=== PATIENT | female | born 1985 | race Caucasian/White ===

== ENCOUNTER 2018-12-20 15:24 | Emergency (ER) | payer MEDICAID ==
[~2018-12-20] VITALS: Ht 154.9 cm; Wt 73.0 kg
[2018-12-20] MEDS ORDERED: SODIUM CHLORIDE 0.9% 1,000 ML IV ONE (23:02)
[2018-12-20 23:30] LABS: BASOPHILS % 0.9 % (0.0-2.0); EOSINOPHILS % 4.5 % (0.0-5.0); HEMATOCRIT. 38.5 % (36.0-48.0); LYMPHOCYTES % 27.5 % (20.0-50.0); MEAN CORPUSCULAR VOLUME 88.7 fL (81.0-99.0); MEAN PLATELET VOLUME 7.8 fl (7.4-10.4); NEUTROPHILS % 59.1 % (40.0-76.0); PLATELET 272 x1000/uL (130-400); RED BLOOD CELL COUNT 4.34 mill/uL (4.2-5.4); RED CELL DISTRIBUTION WIDTH 13.8 % (11.6-14.6)
[2018-12-20 23:31] LABS: CHLORIDE 107 mEq/L (98-107)
[2018-12-21 01:18] VITALS: BP 106/67
== END 2018-12-21 01:19 | disposition home or self-care (01) ==
LOC: ER 15:24
DX: K62.5 Hemorrhage of anus and rectum (principal); J45.909 Unspecified asthma, uncomplicated; F17.200 Nicotine dependence, unspecified, uncomplicated; Z88.6 Allergy status to analgesic agent; Z91.011 Allergy to milk products
CPT/HCPCS: 36415; 80053; 81025; 85025; 99283; J7030; Z7610